=== PATIENT | male | born 1950 | race Two or more races ===

== ENCOUNTER 2018-11-18 22:35 | Emergency (ER) | END 2018-11-18 23:29 | disposition home or self-care (01) | DX: I10 Essential (primary) hypertension (principal); I25.10 Atherosclerotic heart disease of native coronary artery without angina pectoris; F41.9 Anxiety disorder, unspecified; E78.5 Hyperlipidemia, unspecified ==

== ENCOUNTER 2019-04-29 11:57 | Emergency (ER) | payer MEDICARE, BC ==
[~2019-04-29] VITALS: Ht 185.4 cm; Wt 102.5 kg
--- NOTE | 2019-04-29 12:05 | NUR ---
PT BIBSELF FOR DIZZINESS AND CP X 3DAYS, WORSE TODAY; PT AAOX4, -SOB, PT AMBULATORY, NAD NOTED, VSS, PT ON MONITOR, PENDING MD CASTILLO
[2019-04-29 12:20] LABS: BASOPHILS % (AUTO) 0.4 % (0.0-2.0); EOSINOPHILS % (AUTO) 2.6 % (0.0-6.0); HEMATOCRIT 47 % (39-51); HEMOGLOBIN 16.2 g/dL (13.5-17.5); LYMPHOCYTES # (AUTO) 1.7 /CMM (0.8-4.8); LYMPHOCYTES % (AUTO) 32.4 % (20.0-44.0); MEAN CORPUSCULAR HGB CONC 35 g/dl (31.0-36.0); MEAN CORPUSCULAR VOLUME 90 fL (80-96); MONOCYTES # (AUTO) 0.4 /CMM (0.1-1.30); MONOCYTES % (AUTO) 8.2 % (2.0-12.0); NEUTROPHILS # (AUTO) 2.9 /CMM (1.8-8.9); NEUTROPHILS % (AUTO) 56.4 % (43.0-81.0); PLATELET COUNT (AUTO) 179 /CMM (150-450); RED BLOOD CELL COUNT(AUTO) 5.22 MIL/uL (4.5-6.0); WHITE BLOOD COUNT (AUTO) 5.1 K/uL (4.3-11.0)
[2019-04-29 12:50] LABS: ALANINE AMINOTRANSFERASE 33 U/L (12-78); ALBUMIN 3.8 g/dL (3.4-5.0); ALKALINE PHOSPHATASE 58 U/L (46-116); ASPARTATE AMINOTRANSFERASE 19 U/L (15-37); B-TYPE NATRIURETIC PEPTIDE 40 PG/ML (0-125); BILIRUBIN,DIRECT 0.2 mg/dL (0.0-0.2); BILIRUBIN,TOTAL 1.1 mg/dL (0.2-1.0); CALCIUM, SERUM 9.3 mg/dL (8.5-10.1); CARBON DIOXIDE 29 mmol/L (21-32); CHLORIDE 102 mmol/L (98-107); CREATININE 1.3 mg/dL (0.6-1.3); GLUCOSE 139 mg/dL (74-106); POTASSIUM 4.1 mmol/L (3.5-5.1); SODIUM SERUM 138 mmol/L (136-145); TOTAL PROTEIN, SERUM 7.9 g/dL (6.4-8.2); UREA NITROGEN, BLOOD 19 mg/dL (7-18)
[2019-04-29] MEDS ORDERED: MECLIZINE HCL 25 MG TABLET PO ONE (13:30)
[2019-04-29] MEDS ORDERED: IV NS 0.9% 1,000 ML BAG IV ONE (13:30)
[2019-04-29] MEDS ORDERED: MECLIZINE HCL 12.5 MG TABLET ONE (13:55)
[2019-04-29 16:18] VITALS: BP 149/80
--- NOTE | 2019-04-29 16:18 | NUR ---
Patient discharged to home in stable condition. Written and verbal after care instructions given. Patient verbalizes understanding of instruction. IV removed. Catheter intact and site benign. Pressure and 4x4 applied to site. No bleeding noted.
== END 2019-04-29 16:20 | disposition home or self-care (01) ==
LOC: ER 11:57
DX: R42 Dizziness and giddiness (principal); R07.89 Other chest pain; I10 Essential (primary) hypertension; I25.10 Atherosclerotic heart disease of native coronary artery without angina pectoris; F41.9 Anxiety disorder, unspecified; E78.5 Hyperlipidemia, unspecified
CPT/HCPCS: 36415; 71045; 80048; 80076; 83880; 84484 ×2; 85025; 93005 ×2; 96360; 99284; J7030; J8597 ×2

== ENCOUNTER 2019-06-08 16:55 | Emergency (ER) | payer MEDICARE, BC ==
[~2019-06-08] VITALS: Ht 182.9 cm; Wt 103.0 kg
--- NOTE | 2019-06-08 17:05 | NUR ---
PT AMBULATORY TO ER BED 09. C/O PRESSURE LIKE HEADACHE, LIGHTHEADEDNESS X 3 DAYS. PT DENIES ANY UNILATERAL WEAKNESS. NO NEURO DEFICIT NOTED PUMP STITCHER. DENIES CHEST PAIN. STABLE VITALS. AWAITING MD CASTILLO.
--- NOTE | 2019-06-08 17:43 | NUR ---
LIONEL LIANG AT BEDSIDE FOR EVAL.
--- NOTE | 2019-06-08 17:47 | NUR ---
IV LINE STARTED BLOOD DRAWN AND SENT TO LAB.
[2019-06-08] MEDS ORDERED: METOCLOPRAMIDE HCL 10 MG/2 ML VIAL ONE (17:55)
[2019-06-08] MEDS ORDERED: diphenhydrAMINE HCL 50 MG/ML VIAL ONE (17:55)
[2019-06-08 17:58] LABS: BASOPHILS % (AUTO) 0.6 % (0.0-2.0); EOSINOPHILS % (AUTO) 2.9 % (0.0-6.0); HEMATOCRIT 46 % (39-51); HEMOGLOBIN 16.2 g/dL (13.5-17.5); LYMPHOCYTES # (AUTO) 2.5 /CMM (0.8-4.8); LYMPHOCYTES % (AUTO) 36.4 % (20.0-44.0); MEAN CORPUSCULAR HGB CONC 35 g/dl (31.0-36.0); MEAN CORPUSCULAR VOLUME 90 fL (80-96); MONOCYTES # (AUTO) 0.4 /CMM (0.1-1.30); MONOCYTES % (AUTO) 5.9 % (2.0-12.0); NEUTROPHILS # (AUTO) 3.8 /CMM (1.8-8.9); NEUTROPHILS % (AUTO) 54.2 % (43.0-81.0); PLATELET COUNT (AUTO) 192 /CMM (150-450); RED BLOOD CELL COUNT(AUTO) 5.12 MIL/uL (4.5-6.0)
[2019-06-08 18:00] LABS: APPEARANCE,URINE Clear (CLEAR); BILIRUBIN,URINE Negative (NEGATIVE); BLOOD, URINE Trace-intact Ery/uL (NEGATIVE); COLOR,URINE Yellow (YELLOW); KETONES,URINE Negative (NEGATIVE); LEUKOCYTE ESTERASE ,URINE Trace (NEGATIVE); NITRITE, URINE Negative (NEGATIVE); PH,URINE 5.5 (5.0-8.0); PROTEIN,URINE Negative (NEGATIVE); UGLUCOSE Negative (NEGATIVE); UROBILINOGEN,URINE 0.2 EU/dL (0.2)
[2019-06-08] MEDS ORDERED: diphenhydrAMINE HCL 50 MG/ML VIAL IV ONE (18:00)
[2019-06-08] MEDS ORDERED: METOCLOPRAMIDE HCL 10 MG/2 ML VIAL IV ONE (18:00)
[2019-06-08] MEDS ORDERED: IV NS 0.9% 1,000 ML BAG IV ONE (18:00)
[2019-06-08 18:06] LABS: CALCIUM, SERUM 9.3 mg/dL (8.5-10.1); CARBON DIOXIDE 28 mmol/L (21-32); CHLORIDE 102 mmol/L (98-107); CREATININE 1.6 mg/dL (0.6-1.3); GLUCOSE 98 mg/dL (74-106); POTASSIUM 4.1 mmol/L (3.5-5.1); SODIUM SERUM 136 mmol/L (136-145); UREA NITROGEN, BLOOD 25 mg/dL (7-18)
--- NOTE | 2019-06-08 18:15 | NUR ---
PT TO RADIOLOGY FOR HEAD CT SCAN VIA [facility].
[2019-06-08 18:16] LABS: BACTERIA,URINE Few /HPF (None Seen); RBC,URINE 0-2 /HPF (0-2); SQUAMOUS EPITHELIAL CELL,UR Few /HPF (None Seen); WBC,URINE 0-2 /HPF (0-3)
[2019-06-08 18:17] LABS: ALANINE AMINOTRANSFERASE 36 U/L (12-78); ALBUMIN 3.8 g/dL (3.4-5.0); ALKALINE PHOSPHATASE 59 U/L (46-116); ASPARTATE AMINOTRANSFERASE 20 U/L (15-37); BILIRUBIN,DIRECT 0.1 mg/dL (0.0-0.2); BILIRUBIN,TOTAL 0.5 mg/dL (0.2-1.0); TOTAL PROTEIN, SERUM 7.8 g/dL (6.4-8.2)
[2019-06-08 19:25] VITALS: BP 136/81
--- NOTE | 2019-06-08 19:25 | NUR ---
Patient discharged to home in stable condition. Written and verbal after care instructions given. Patient verbalizes understanding of instruction.IV removed. Catheter intact and site benign. Pressure and 4x4 applied to site. No bleeding noted.
== END 2019-06-08 19:26 | disposition home or self-care (01) ==
LOC: ER 16:55
DX: R51 Headache (principal); R42 Dizziness and giddiness; I10 Essential (primary) hypertension; I25.10 Atherosclerotic heart disease of native coronary artery without angina pectoris; F41.9 Anxiety disorder, unspecified; E78.5 Hyperlipidemia, unspecified; R00.1 Bradycardia, unspecified
CPT/HCPCS: 36415; 70450; 80048; 80076; 81001; 84484; 85025; 85730; 93005; 96361; 96374; 96375; 99284; J1200; J2765; J7030 ×2; 81000-TC

== ENCOUNTER 2019-09-24 18:46 | Emergency (ER) | payer MEDICARE, BC ==
[~2019-09-24] VITALS: Ht 185.4 cm; Wt 99.8 kg
[2019-09-24 18:55] VITALS: BP 146/94
--- NOTE | 2019-09-24 18:56 | NUR ---
"PT STATES "MY BP GOES UP AND DOWN x 2 DAYS", LAST BP 179/111, TOOK BP MEDS 1.5 HR AGO, AND TOOK FRIEND BP MED IRBESARTAN 75MG 0.5 TAB" PT AAOX4, -SOB, NAD NOTED, VSS, PENDING MD CASTILLO
[2019-09-24] MEDS ORDERED: IBUPROFEN 600 MG TABLET PO ONE ×2 (19:30→19:34)
[2019-09-24] MEDS ORDERED: ACETAMINOPHEN ES 500 MG TABLET PO ONE (19:30)
[2019-09-24] MEDS ORDERED: ACETAMINOPHEN ES 500 MG TABLET ONE (19:34)
== END 2019-09-24 19:42 | disposition home or self-care (01) ==
LOC: ER 18:50
DX: R51 Headache (principal); I10 Essential (primary) hypertension; I25.10 Atherosclerotic heart disease of native coronary artery without angina pectoris; F41.9 Anxiety disorder, unspecified; E78.5 Hyperlipidemia, unspecified

== ENCOUNTER 2019-12-19 09:57 | Inpatient (IN) | payer MEDICARE, BC ==
[~2019-12-19] VITALS: Ht 185.4 cm; Wt 99.8 kg
--- NOTE | 2019-12-19 10:10 | NUR ---
seen and examined by dr. kinsey.
[2019-12-19] MEDS ORDERED: ONDANSETRON HCL/PF 4 MG/2 ML VIAL ONE (10:20)
[2019-12-19] MEDS ORDERED: MECLIZINE HCL 25 MG TABLET ONE (10:20)
--- NOTE | 2019-12-19 10:20 | NUR ---
DIZZINESS (ROOM SPINNING ) AFTER SAUNA AND SWOWER AT AROUND 0900 CHECK B/P AND WAS ELEVATED. PATIENT A/OX4, BREATHING EVEN AND UNLABORED, NO SOB NOTED, NEEDS ATTENDED. KEPT COMFORTABLE. IV LINE ESTABLISHED, BLOOD DRAWN AND SENT TO LAB.
[2019-12-19] MEDS ORDERED: ONDANSETRON HCL/PF 4 MG/2 ML VIAL IVP ONE (10:30)
[2019-12-19] MEDS ORDERED: MECLIZINE HCL 12.5 MG TABLET PO ONE (10:30)
[2019-12-19] MEDS ORDERED: IV NS 0.9% 500 ML BAG IV ONE (10:30)
[2019-12-19 10:31] LABS: BASOPHILS % (AUTO) 0.5 % (0.0-2.0); EOSINOPHILS % (AUTO) 2.6 % (0.0-6.0); HEMATOCRIT 47 % (39-51); LYMPHOCYTES # (AUTO) 1.4 /CMM (0.8-4.8); LYMPHOCYTES % (AUTO) 33.2 % (20.0-44.0); MEAN CORPUSCULAR HGB CONC 34 g/dl (31.0-36.0); MEAN CORPUSCULAR VOLUME 89 fL (80-96); MONOCYTES # (AUTO) 0.3 /CMM (0.1-1.30); MONOCYTES % (AUTO) 6.8 % (2.0-12.0); NEUTROPHILS # (AUTO) 2.4 /CMM (1.8-8.9); NEUTROPHILS % (AUTO) 56.9 % (43.0-81.0); PLATELET COUNT (AUTO) 192 /CMM (150-450); RED BLOOD CELL COUNT(AUTO) 5.23 MIL/uL (4.5-6.0); WHITE BLOOD COUNT (AUTO) 4.2 K/uL (4.3-11.0)
[2019-12-19 10:38] LABS: CALCIUM, SERUM 9.2 mg/dL (8.5-10.1); CARBON DIOXIDE 30 mmol/L (21-32); CHLORIDE 104 mmol/L (98-107); CREATININE 1.4 mg/dL (0.6-1.3); GLUCOSE 174 mg/dL (74-106); POTASSIUM 4.7 mmol/L (3.5-5.1); SODIUM SERUM 139 mmol/L (136-145); UREA NITROGEN, BLOOD 16 mg/dL (7-18)
--- NOTE | 2019-12-19 11:22 | NUR ---
patient was able to ambulates to restroom.
[2019-12-19] MEDS ORDERED: ASPIRIN 325 MG TABLET PO ONE (12:00)
[2019-12-19] MEDS ORDERED: ASPIRIN 325 MG TABLET ONE (12:05)
--- NOTE | 2019-12-19 12:13 | NUR ---
CALLED NURSING SUP FOR TELE BED
[2019-12-19] MEDS ORDERED: VALS320T16 PO (12:14)
[2019-12-19] MEDS ORDERED: AMLO5TAB9 PO (12:14)
[2019-12-19] MEDS ORDERED: CHOL200059 PO (12:14)
[2019-12-19] MEDS ORDERED: ALPR0.5T8 PO (12:14)
[2019-12-19] MEDS ORDERED: ASPI-605 PO (12:14)
[2019-12-19 13:00] VITALS: BP 128/76
--- NOTE | 2019-12-19 13:12 | NUR ---
PATIENT TRANSFERRED TO ROOM 306-1 VIA ACLS PROTOCOL. NO DISTRESS NOTED. NEEDS ATTENDED.
--- NOTE | 2019-12-19 13:17 | NUR ---
SOFTWARE WRITER NOTES RECEIVED PT FROM E.R. STAFF VIA [facility], PT IS AWAKE, ALERT AND ORIENTED, NO COMPLAINT OF PAIN, NOT IN DISTRESS, STILL COMPLAINING OF SLIGHT DIZZINESS, STATED THAT IT IS BETTER, ASSISTED TO BED, MADE COMFORTABLE AND WARM, ROOM SET UP ORIENTATION PROVIDED TO PT., VERBALIZED UNDERSTANDING, CALL LIGHT PLACED WITHIN REACH, AWAITING ADMITTING ORDERS FROM MD.
[2019-12-19] MEDS ORDERED: ACETAMINOPHEN 325 MG TABLET PO PRN (13:30)
[2019-12-19] MEDS ORDERED: ALPRAZOLAM 0.5 MG TABLET PO PRN (13:30)
[2019-12-19] MEDS ORDERED: Z GUARD REMEDY 2 OZ OINT TP PRN (13:30)
[2019-12-19] MEDS ORDERED: ONDANSETRON HCL/PF 4 MG/2 ML VIAL IVP PRN (13:30)
--- NOTE | 2019-12-19 16:02 | NUR ---
STAINED GLASS GLAZIER HELPER NOTES PT IN BED, AWAKE, ALERT AND ORIENTED, DENIES PAIN, SEEN AND EXAMINED BY DR. MORELOS, PLAN OF CARE DISCUSSED WITH PT, VERBALIZED UNDERSTANDING, CALL LIGHT WITHIN REACH.
[2019-12-19] MEDS ORDERED: AMLODIPINE BESYLATE 5 MG TABLET PO SCH (18:00)
--- NOTE | 2019-12-19 18:08 | NUR ---
DIRECTOR OF PUBLIC SAFETY NOTES PT IN BED, RESTING, ALERT AND ORIENTED, DENIES PAIN, STATED THAT HIS DIZZINESS HAS IMPROVED, ABLE TO AMBULATE TO THE BATHROOM WITH STEADY GAIT, TOLERATES CURRENT DIET, PM MEDS GIVEN ORDERED, ALL NEEDS ATTENDED.
[2019-12-19 19:30] VITALS: BP 128/69
--- NOTE | 2019-12-19 19:30 | NUR ---
MS RN NOTES PATIENT IN BED, AWAKE, ALERT AND ORIENTED X 4. BREATHING EVEN AND UNLABORED ON ROOM AIR. SHOWS NO SIGNS OF ACUTE RESPIRATORY DISTRESS, NO ACUTE PAIN. IV ON RAC 20G INTACT, CLEAN AND DRY. SHOWS NO SIGNS OF INFILTRATION, NO REDNESS. TELE MONITOR ON SR/ SB AT 55'S. SAFETY PRECAUTIONS IN PLACE. BED IN LOWEST POSITION, LOCKED, AND CALL LIGHT KEPT WITHIN REACH. WILL CONTINUE TO MONITOR.
[2019-12-19 19:55] VITALS: BP 128/69
[2019-12-19] MEDS ORDERED: ATORVASTATIN 40 MG TABLET PO SCH (22:00)
[2019-12-19 23:57] VITALS: BP 112/60
[2019-12-20 03:55] VITALS: BP 126/74
[2019-12-20 06:21] LABS: BASOPHILS % (AUTO) 0.6 % (0.0-2.0); EOSINOPHILS % (AUTO) 2.3 % (0.0-6.0); HEMATOCRIT 45 % (39-51); HEMOGLOBIN 15.5 g/dL (13.5-17.5); LYMPHOCYTES % (AUTO) 35.6 % (20.0-44.0); MEAN CORPUSCULAR HGB CONC 34 g/dl (31.0-36.0); MEAN CORPUSCULAR VOLUME 89 fL (80-96); MONOCYTES # (AUTO) 0.5 /CMM (0.1-1.30); MONOCYTES % (AUTO) 8.8 % (2.0-12.0); NEUTROPHILS # (AUTO) 2.9 /CMM (1.8-8.9); NEUTROPHILS % (AUTO) 52.7 % (43.0-81.0); PLATELET COUNT (AUTO) 188 /CMM (150-450); RED BLOOD CELL COUNT(AUTO) 5.07 MIL/uL (4.5-6.0); WHITE BLOOD COUNT (AUTO) 5.5 K/uL (4.3-11.0)
--- NOTE | 2019-12-20 07:00 | NUR ---
AREA ATTENDANT RN NOTES PATIENT IN BED, ASLEEP, ALERT AND ORIENTED X 4. BREATHING EVEN AND UNLABORED ON ROOM AIR. SHOWS NO SIGNS OF ACUTE RESPIRATORY DISTRESS, NO ACUTE PAIN. IV ON RAC 20G INTACT, CLEAN AND DRY. SHOWS NO SIGNS OF INFILTRATION, NO REDNESS. TELE MONITOR ON SR/ SB AT 45'S. ALL DUE MEDICATIONS GIVEN. SAFETY PRECAUTIONS IN PLACE. BED IN LOWEST POSITION, LOCKED, AND CALL LIGHT KEPT WITHIN REACH. WILL ENDORSE TO ONCOMING NURSE.
[2019-12-20 07:03] LABS: ALBUMIN 3.3 g/dL (3.4-5.0); BILIRUBIN,TOTAL 0.9 mg/dL (0.2-1.0); CREATININE 1.5 mg/dL (0.6-1.3); MAGNESIUM 1.9 mg/dL (1.8-2.4); PHOSPHORUS 3.3 mg/dL (2.5-4.9); POTASSIUM 4.1 mmol/L (3.5-5.1)
[2019-12-20 08:00] VITALS: BP_SYST 129; BP_SYST 160; BP_DIAS 81; BP_DIAS 85
[2019-12-20 08:52] VITALS: BP 160/81
[2019-12-20] MEDS ORDERED: AMLO5TAB9 PO (08:57)
[2019-12-20] MEDS ORDERED: ATOR40TA PO (08:57)
[2019-12-20] MEDS ORDERED: ASPIRIN EC 81 MG TABLET.DR PO SCH (09:00)
[2019-12-20] MEDS ORDERED: AMLODIPINE BESYLATE 5 MG TABLET PO SCH (09:00)
[2019-12-20] MEDS ORDERED: VALSARTAN 80 MG TABLET PO SCH (09:00)
[2019-12-20] MEDS ORDERED: CHOLECALCIFEROL 1,000 UNIT TABLET (VIT D3) PO SCH (09:00)
--- NOTE | 2019-12-20 10:30 | NUR ---
MS/EDGE BASTER NOTE Patient is medically stable for discharge. A/O x4, patient is in no acte distress, no SOB noted, vital signs WNL. Patient refused skin assessment. DC instructions provided and patient verbalized understanding. IV removed, ID band removed. Patient has all belongings with them. Patient kept clean and dry throughout shift, all patient needs met, all due meds given. Patient left unit ambulatory and picked up by son via private car.
--- NOTE | 2019-12-20 12:59 | NUR ---
MS/RN OPENING NOTE Patient received resting in bed, A/O x4, showing no signs of acute distress, saturating well on RA. IV line is clean and intact s/l. Patient has no complaints of pain at this time. Bed is in lowest position, side rails x2 in upright position, call light is within reach and patient is aware of how to call for assistance when needed. Will continue with plan of care.
== END 2019-12-20 10:30 | disposition home or self-care (01) | DRG 149 ==
LOC: ER 09:59 → TELE 12:38 → MED 12-20 09:39
PROVIDERS: ADMIT Internal Medicine; ATTEND Internal Medicine
DX: H83.09 Labyrinthitis, unspecified ear (principal); N17.0 Acute kidney failure with tubular necrosis; E78.5 Hyperlipidemia, unspecified; I25.10 Atherosclerotic heart disease of native coronary artery without angina pectoris; N18.9 Chronic kidney disease, unspecified; I12.9 Hypertensive chronic kidney disease with stage 1 through stage 4 chronic kidney disease, or unspecified chronic kidney disease; H81.399 Other peripheral vertigo, unspecified ear
CPT/HCPCS: 36415; 70450-TC; 80048-TC; 80053-TC; 80061-TC; 83735-TC; 84100-TC; 84443-TC; 84484-TC; 85025-TC; 87081-TC; 92611-TC; 93307-TC; 93880-TC; 97116-TC; 97530-TC; G0378; J2405; J7040; J8597

== ENCOUNTER 2020-08-07 21:53 | Emergency (ER) | payer MEDICARE, BC ==
[~2020-08-07] VITALS: Ht 185.4 cm; Wt 102.1 kg
[~2020-08-07 21:53] MED LIST: ALPR0.5T8 PO; AMLO5TAB9 PO; ASPI-605 PO; ATOR40TA PO; CHOL200059 PO; VALS320T16 PO
--- NOTE | 2020-08-07 21:55 | NUR ---
PT CAME TO THE ER C/O HIGH BP X FEW DAYS. PER PT, BP IS AT 170'S. PT WAS AT [facility] FOR THE SAME REASON. PT AAOX4, RESPIRATIONS EVEN AND UNLABORED ON RA W/ NAD NOTED. PT CONNECTED TO THE ACCESS CONSULTANT AND POX
--- NOTE | 2020-08-07 22:21 | NUR ---
DR ALCARAZ AT BEDSIDE
[2020-08-07] MEDS ORDERED: IBUPROFEN 400 MG TABLET ONE (22:22)
[2020-08-07] MEDS: IBUPROFEN 400 MG TABLET PO ONE (22:25)
--- NOTE | 2020-08-07 23:03 | NUR ---
Patient discharged to home in stable condition. Written and verbal after care instructions given. Patient verbalizes understanding of instruction.
[2020-08-07 23:05] VITALS: BP 143/78
== END 2020-08-07 23:05 | disposition home or self-care (01) ==
LOC: ER 21:56
DX: I10 Essential (primary) hypertension (principal); R51 Headache; E78.5 Hyperlipidemia, unspecified; Z79.82 Long term (current) use of aspirin; Z79.899 Other long term (current) drug therapy

== ENCOUNTER 2022-02-21 01:10 | Emergency (ER) | payer MEDICARE, BC ==
[~2022-02-21 01:10] MED LIST changes: +AMLO-212 PO; -AMLO5TAB9 PO
== END 2022-02-21 02:21 | disposition left against medical advice (07) ==
LOC: ER 01:23
DX: Z53.21 Procedure and treatment not carried out due to patient leaving prior to being seen by health care provider (principal)